=== PATIENT | female | born 1945 | race African-American/Black ===

== ENCOUNTER 2016-10-05 06:44 | Inpatient (IN) | payer BC ==
[2016-09-26 11:59] LABS: BASOPHILS 0.4 %; BASOPHILS ABSOLUTE 0.03 10/3/uL (0.0-0.16); EOSINOPHILS 1.3 %; EOSINOPHILS ABSOLUTE 0.09 10/3/uL (0.0-0.53); HEMATOCRIT 38.3 % (36.0-48.0); HEMOGLOBIN 13.2 g/dL (12.0-16.0); IMMATURE GRANULOCYTES 0.1 %; IMMATURE GRANULOCYTES ABSOLUTE 0.01 10/3/uL (0.0-0.11); LYMPHOCYTES 36.9 %; LYMPHOCYTES ABSOLUTE 2.51 10/3/uL (0.67-4.30); MEAN CORPUS HGB CONC 34.5 g/dL (32.0-36.0); MEAN CORPUSCULAR HEMOGLOB 31.6 pg (26.0-34.0); MEAN CORPUSCULAR VOLUME 91.6 fL (80-100); MEAN PLATELET VOLUME 9.8 fL (9.2-13.0); MONOCYTES 6.2 %; MONOCYTES ABSOLUTE 0.42 10/3/uL (0.21-1.20); NEUTROPHILS 55.1 %; NEUTROPHILS ABSOLUTE 3.75 10/3/uL (2.02-8.40); PLATELET COUNT 317 10/3/uL (150-400); RBC DISTRIBUTION WIDTH 12.5 % (12.0-16.0); RED CELL COUNT 4.18 10/6/uL (4.0-5.6); WHITE BLOOD CELLS 6.8 10/3/uL (4.5-10.5)
[2016-09-26 12:02] LABS: MANUAL DIFF NO %
[2016-09-26 12:07] LABS: PARTIAL THROMBO TIME 26.7 SEC (22.5-37.2); PROTIME (NOT ORD) 13.3 SEC (12.0-14.5)
[2016-09-26 12:08] LABS: A/G RATIO 0.9 (0.7-1.9); ALBUMIN 3.7 G/DL (3.5-5.0); ALKALINE PHOSPHATASE 95 U/L (45-117); BUN (BLOOD UREA NITROGEN) 13 MG/DL (6-23); CALCIUM, SERUM 9.4 MG/DL (8.5-10.4); CHLORIDE, SERUM 105 MMOL/L (96-112); CO2 (CARBON DIOXIDE) 32 MMOL/L (24-34); CREATININE 0.66 MG/DL (0.55-1.02); GFR AFRICAN AMERICAN 104 ML/MIN (>=60); GFR NON AFRICAN AMERICAN 90 ML/MIN (>=60); GLOBULIN 4.2 G/DL (2.5-4.1); SGOT(AST) 14 U/L (5-40); SGPT(ALT) 20 U/L (5-65); SODIUM, SERUM 141 MMOL/L (135-148); TOTAL BILIRUBIN 0.3 MG/DL (0-1.2); TOTAL PROTEIN 7.9 G/DL (6.0-8.5)
[2016-09-26 12:10] LABS: GLUCOSE, SERUM 88 MG/DL (60-99)
[2016-09-26 13:51] LABS: ASCORBIC ACID (UR NOT ORDER) NEG (NEG); BILIRUBIN, URINE NEGATIVE (NEG); KETONE, URINE NEGATIVE (NEG); LEUKOCYTE ESTERASE(NOT OR NEG (NEG); WBC (NOT ORDERED) (RFLEX) 1 (0-5)
--- NOTE | ~2016-10-05 | DS ---
Discharge Summary [facility] [address] [place]. [address] NAME: FAHEEM HANKINS : 49 STATUS : DIS IN PAT#: [id number] AGE: 71 ADM/REG DATE : 10/05/16 MR#: [id number] REPORT SERV DATE: 10/19/16 DICTATED BY: VAL MONTELONGO DATE: 10/19/16 REPORT STATUS : Draft TRANSCRIBED BY: SAMEER DATE: 10/19/16 Data Collection from hospitalization DISCHARGE DIAGNOSES: 1. Left knee arthritis. 2. Hypertension. 3. Diabetes. 4. Osteoarthritis. 5. Rheumatoid arthritis. 6. Depression. 7. Hypercholesterolemia. 8. Gastroesophageal reflux disease. CONSULTATIONS: None. PROCEDURES PERFORMED: Left total knee arthroplasty on 10/05/2016. PATHOLOGY: Bone and soft tissue, left knee, total knee arthroplasty - degenerative changes, fatty marrow with extensive medullary fibrosis. No tumor or active inflammation. DISCHARGE MEDICATIONS: Norvasc 10 mg daily, vitamin D 2000 units daily, Neurontin 100 mg at bedtime, Glynase 1.5 mg with breakfast, [place] 7.5/325 one tablet every four hours as needed, Ativan 1 mg as needed, Cozaar 100 mg daily, Glucophage 500 mg twice a day, and Coumadin half tablet daily as instructed. CONDITION AT DISCHARGE: Stable. DISPOSITION: The patient was discharged home on an 1800-calorie diabetic diet with activities as instructed. She would follow up with me on 10/19/2016 and 11/17/2016. HOSPITAL COURSE: This is a 71-year-old female, who has been seen in the office with left knee pain. The pain had gradually worsened. She said she had increased swelling in her knees and times to the point she was unable to put weight on the knee. The patient has left knee arthritis. Treatment options were discussed and it was elected to proceed with surgical intervention. She was admitted to the hospital at this time for further evaluation and treatment. Upon admission, she was taken to the operating room where she underwent the above-mentioned procedure. She tolerated this well. There were no complications. On postop day #1, she did complain of a sore throat. ЕКАТЕРИНА/SCDs were in place. A Mcgill catheter was placed for urinary retention. Gabapentin was continued for neuropathy. Level 2 sliding scale insulin was provided. Hydralazine was being given as needed. Her home glyburide dosage was restarted. She was going to remain on Norvasc and Losartan for blood pressure control. On 10/07/2016, the patient said she had pain all night in the left knee. She was very drowsy. She was making slow progress. She was evaluated by Occupational and Physical Therapy. Over the next couple of days, she continued to progress. She was participating with Physical Therapy. Discharge planning was performed. Her blood pressure was controlled. On 10/09/2016, she continued to slowly progress. She did request rehab. She was doing well Discharge Summary [facility] [address] [place]. [address] NAME: FAHEEM HANKINS : 49 STATUS : DIS IN PAT#: [id number] AGE: 71 ADM/REG DATE : 10/05/16 MR#: [id number] REPORT SERV DATE: 10/19/16 DICTATED BY: VAL MONTELONGO DATE: 10/19/16 REPORT STATUS : Draft TRANSCRIBED BY: SAMEER DATE: 10/19/16 with Physical Therapy. Discharge instructions were given. Due to her improved and stable condition, she was discharged home with the above-stated instructions. Information collected by: Yuli Lundberg I submit the above information as my discharge summary. GIORGI/SAMEER Val Montelongo M.D. / [id number] CC: Luisito Sotelo M.D.
--- NOTE | ~2016-10-05 | OP ---
Record Of Operation [facility] [address] [place]. [address] NAME: FAHEEM HANKINS : 49 STATUS : ADM IN PAT#: [id number] AGE: 71 ADM/REG DATE : 10/05/16 MR#: [id number] REPORT SERV DATE: 10/05/16 DICTATED BY: VAL MONTELONGO DATE: 10/05/16 REPORT STATUS : Draft TRANSCRIBED BY: MODL DATE: 10/05/16 DATE OF PROCEDURE: 10/05/2016 PREOPERATIVE DIAGNOSIS: Left knee arthritis. POSTOPERATIVE DIAGNOSIS: Left knee arthritis. PROCEDURE PERFORMED: Left total knee arthroplasty. SURGEON: Val Montelongo M.D. SUPERVISOR GROWER: Leesa Hollins. ANESTHESIA: Spinal with sedation, adductor block, and local infusion. DESCRIPTION OF PROCEDURE: The patient is clearly identified and after obtaining informed consent is brought to the operating room at [facility] where anesthesia is induced uneventfully with excellent anesthetic effect. Subsequently, the affected extremity is prepped and draped in the usual manner and after an appropriate time-out procedure is performed, via an anterior approach, the skin is divided, fascial planes are elevated, paramedial approach to the knee is made. The structures themselves are elevated, excised, and debrided were appropriate, whereupon the patella is carefully everted, calipered, and planed and with the size and type being reproduced with the appropriate-size patella, trialing is performed successfully. At this point, the patella is then carefully subluxed laterally, the knee is flexed, osteophytes around the distal femur are removed, followed by the ACL being divided. The femoral canal is entered and vented, at which point with the intramedullary guide being utilized, the distal femoral cut is made. At this point, the tibia is carefully subluxed anteriorly. The surrounding soft tissues to the tibia are protected with Hohmann retractors, at which point the extramedullary guide is utilized to perform the proximal tibial cut and after cleansing these tissues, the spacer block is utilized in extension to confirm excellent extension, stability, and alignment. The guiding pins are then all carefully removed and the knee is then flexed. The femur is sized, whereupon the anterior, posterior, chamfer, and box cuts are made appropriately. The proximal tibia then is assessed. Osteophytes and surrounding soft tissues are removed and debrided were appropriate. Posterior osteophytes are removed as well. The menisci are excised and thus concluding trialings performed successfully. The proximal tibia then is carefully prepared utilizing proper cement technique. The permanent implants have been carefully placed into position uneventfully where upon copious irrigations performed, the permanent tibial implants applied and thus concluded. The joint was then copiously irrigated, at which point it is closed carefully in layers including Vicryl and janette for the skin, at which point Aquacel sterile dressing is applied. The patient is allowed to awaken and is transferred to the bed and subsequently to the recovery room in stable condition having tolerated the procedure well. ESTIMATED BLOOD LOSS: 75. Record Of Operation [address] [place]. [address] NAME: FAHEEM HANKINS : 49 STATUS : ADM [facility]#: [id number] AGE: 71 ADM/REG DATE : 10/05/16 MR#: [id number] REPORT SERV DATE: 10/05/16 DICTATED BY: VAL MONTELONGO DATE: 10/05/16 REPORT STATUS : Draft TRANSCRIBED BY: SAMEER DATE: 10/05/16 FLUIDS: 1000. TOURNIQUET TIME: 36 minutes. PATHOLOGY: Sent specimen. MICROBIOLOGY: None. COMPLICATIONS: None. SPONGE AND NEEDLE COUNTS: Reportedly correct. ANTIBIOTICS: Administered appropriately preoperatively and ordered to be discontinued within 23 hours. IMPLANTS: Attune knee by DePuy, femur 4, tibia 3, patella 35, and polyethylene 08/28. TERRI/SAMEER Val Montelongo M.D. / [id number] CC: Val Montelongo M.D.
[~2016-10-05 06:44] MED LIST: ASAB PO; ATV1 PO; COZAAR100 MG PO; DIL2TAB PO; DIOV160 PO; GLUCPH PO; GLYNASE1.5 PO; LORT7 PO; MOBIC15 MG PO; NEUR100 PO; NORCO1 TAB PO; NORV10 PO; VITAMIN D1000 UNI1 PO
[2016-10-06 04:35] LABS: HEMATOCRIT 31.3 % (36.0-48.0); HEMOGLOBIN 10.7 g/dL (12.0-16.0)
[2016-10-06 04:39] LABS: INTERNATIONAL NORMAL RATI 1.2 UNITS (-)
[2016-10-06 04:45] LABS: PROTIME (NOT ORD) 15.3 SEC (12.0-14.5)
[2016-10-06 04:47] LABS: CHLORIDE, SERUM 103 MMOL/L (96-112); CO2 (CARBON DIOXIDE) 31 MMOL/L (24-34); CREATININE 0.82 MG/DL (0.55-1.02); GFR AFRICAN AMERICAN 85 ML/MIN (>=60); GFR NON AFRICAN AMERICAN 73 ML/MIN (>=60); POTASSIUM, SERUM 3.8 MMOL/L (3.5-5.3); SODIUM, SERUM 140 MMOL/L (135-148)
[2016-10-06 04:48] LABS: BUN (BLOOD UREA NITROGEN) 9 MG/DL (6-23); CALCIUM, SERUM 8.4 MG/DL (8.5-10.4); GLUCOSE, SERUM 199 MG/DL (60-99)
[2016-10-07 05:49] LABS: HEMATOCRIT 30.7 % (36.0-48.0); HEMOGLOBIN 10.7 g/dL (12.0-16.0)
[2016-10-07 05:54] LABS: INTERNATIONAL NORMAL RATI 1.4 UNITS (-); PROTIME (NOT ORD) 17.1 SEC (12.0-14.5)
[2016-10-08 04:53] LABS: HEMOGLOBIN 10.7 g/dL (12.0-16.0)
[2016-10-08 04:56] LABS: CHLORIDE, SERUM 102 MMOL/L (96-112); CO2 (CARBON DIOXIDE) 27 MMOL/L (24-34); CREATININE 0.64 MG/DL (0.55-1.02); GFR AFRICAN AMERICAN 106 ML/MIN (>=60); GFR NON AFRICAN AMERICAN 91 ML/MIN (>=60); GLUCOSE, SERUM 179 MG/DL (60-99); SODIUM, SERUM 138 MMOL/L (135-148)
[2016-10-08 04:58] LABS: BUN (BLOOD UREA NITROGEN) 13 MG/DL (6-23); CALCIUM, SERUM 9.5 MG/DL (8.5-10.4)
[2016-10-08 05:07] LABS: INTERNATIONAL NORMAL RATI 1.7 UNITS (-)
[2016-10-08 05:08] LABS: PROTIME (NOT ORD) 19.7 SEC (12.0-14.5)
[2016-10-09 04:54] LABS: INTERNATIONAL NORMAL RATI 1.9 UNITS (-); PROTIME (NOT ORD) 21.4 SEC (12.0-14.5)
[2016-10-09] MEDS ORDERED: NORCO1 TA2 PO (15:11)
[2016-10-09] MEDS ORDERED: C5 PO (15:13)
== END 2016-10-09 16:52 | disposition home or self-care (01) | DRG 470 ==
LOC: SDC/OF 06:44 → PACU 11:59 → 3SO 14:26
PROVIDERS: Nurse Practitioner Acute Care; Orthopaedic Surgery
PROC: 0SRD0J9 Replacement of Left Knee Joint with Synthetic Substitute, Cemented, Open Approach (ICD-10-PCS; principal; 2016-10-05 09:45)
DX: M17.12 Unilateral primary osteoarthritis, left knee (principal); G62.9 Polyneuropathy, unspecified; I10 Essential (primary) hypertension; E11.9 Type 2 diabetes mellitus without complications
CPT/HCPCS: 36415; 71020; 80048; 80053; 81001; 82962; 85014; 85018; 85025; 85610; 85730; 86850; 86900; 86901; 87641; 88305; 88311; 93005; 97110-GP; 97116-GP; 97161-GP; 97165-GO; 97530-GP; A9270-GY; C1776; J0690; J1170; J1885; J2250; J2274; J2405; J2795; J3010